=== PATIENT | female | born 1960 | race African-American/Black ===

== ENCOUNTER 2022-12-21 13:36 | Outpatient (CLI) | payer BC | END 2022-12-21 13:37 | disposition home or self-care (01) | LOC: BICMAMMO 13:36 | PROVIDERS: ATTEND Internal Medicine | DX: Z12.31 Encounter for screening mammogram for malignant neoplasm of breast (principal); M81.0 Age-related osteoporosis without current pathological fracture; M85.80 Other specified disorders of bone density and structure, unspecified site | CPT/HCPCS: 77063; 77067; 77080 ==

== ENCOUNTER 2024-05-18 09:36 | Emergency (ER) | payer BC ==
[2024-05-18 10:25] LABS: #Basophils 0.03 10x3/uL (0.0-0.2); %Basophils 0.8 % (0.0-1.0); %Eosinophils 1.1 % (0.0-10.0); %Lymphocytes 57.1 % (21.0-51.0); %Monocytes 5.4 % (0.0-10.0); %Neutrophils 35.3 % (42.0-75.0); Hematocrit 33.3 % (36.0-47.0); Hemoglobin 11.2 g/dL (12.0-16.0); Mean Corpuscular HGB CONC 33.6 g/dL (32.0-36.0); Mean Corpuscular Hemoglobin 29.6 pg (27.0-31.0); Mean Corpuscular Volume 87.9 fL (78.0-98.0); Mean Platelet Volume 10.8 fL (7.4-10.4); Platelet Count 291 10x3/uL (130-400); RBC Distribution Width 11.9 % (11.5-14.5); Red Blood Cell (RBC) Count 3.79 mill/uL (4.20-5.40)
[2024-05-18] MEDS ORDERED: Acetaminophen 500 MG TAB ONE (10:40)
[2024-05-18] MEDS ORDERED: Ketorolac Tromethamine 30 MG (1 mL) VIAL ONE (10:40)
[2024-05-18 10:49] LABS: ALT (SGPT) 10 U/L (8-55); AST (SGOT) 16 U/L (5-34); Albumin 4.3 g/dL (3.4-4.8); Alkaline Phosphatase 59 U/L (40-110); Anion Gap 14 mmol/L (10-20); BUN (Urea Nitrogen) 17 mg/dL (9.8-20.1); Bilirubin, Total 0.9 mg/dL (0.2-1.2); Calc. Creatinine Clearance 0 mL/min (70-130); Calcium 9.8 mg/dL (7.8-10.44); Carbon Dioxide 21 mmol/L (23-31); Chloride 105 mmol/L (98-107); Estimated GFR 39; Globulin 3.8 g/dL (2.4-3.5); Glucose 197 mg/dL (80-115); Protein, Total 8.1 g/dL (5.8-8.1); Sodium 136 mmol/L (136-145)
[2024-05-18 11:18] LABS: Troponin I Less than 0.010 ng/mL (< 0.028)
== END 2024-05-18 12:15 | disposition home or self-care (01) ==
LOC: ERS 09:36
DX: R55 Syncope and collapse (principal); M54.9 Dorsalgia, unspecified; I10 Essential (primary) hypertension; E11.9 Type 2 diabetes mellitus without complications; Z79.84 Long term (current) use of oral hypoglycemic drugs; Z79.899 Other long term (current) drug therapy
CPT/HCPCS: 71046; 80053; 84484; 85025; 93005; 96374; J1885

== ENCOUNTER 2024-09-03 09:17 | Outpatient (CLI) | payer BC ==
[2024-09-03 10:33] LABS: Anion Gap 10 mmol/L (10-20); BUN (Urea Nitrogen) 8 mg/dL (9.8-20.1); Calc. Creatinine Clearance 0 mL/min (70-130); Calcium 9.9 mg/dL (7.8-10.44); Carbon Dioxide 29 mmol/L (23-31); Chloride 106 mmol/L (98-107); Estimated GFR 87; Glucose 141 mg/dL (80-115); Potassium 3.4 mmol/L (3.5-5.1); Sodium 142 mmol/L (136-145)
== END 2024-09-03 09:18 | disposition home or self-care (01) ==
LOC: LABBT 09:17
PROVIDERS: ATTEND Neurological Surgery
DX: Z01.812 Encounter for preprocedural laboratory examination (principal); M51.16 Intervertebral disc disorders with radiculopathy, lumbar region
CPT/HCPCS: 80048

== ENCOUNTER 2024-09-12 06:46 | Day surgery (SDC) | payer BC ==
[2024-09-03 09:37] VITALS: BMI 22.4
[2024-09-12] MEDS ORDERED: Midazolam HCl 2 mg/2 ml Vial ONE (08:14)
[2024-09-12 08:50] LABS: #Basophils Less than 0.03 10x3/uL (0.0-0.2); %Basophils 0.5 % (0.0-1.0); %Eosinophils 1.8 % (0.0-10.0); %Lymphocytes 48.1 % (21.0-51.0); %Monocytes 6.6 % (0.0-10.0); %Neutrophils 42.7 % (42.0-75.0); Hematocrit 31.6 % (36.0-47.0); Hemoglobin 9.8 g/dL (12.0-16.0); Mean Corpuscular Hemoglobin 28.7 pg (27.0-31.0); Mean Corpuscular Volume 92.7 fL (78.0-98.0); Mean Platelet Volume 11.7 fL (7.4-10.4); Platelet Count 335 10x3/uL (130-400); RBC Distribution Width 13.1 % (11.5-14.5); Red Blood Cell (RBC) Count 3.41 mill/uL (4.20-5.40)
[2024-09-12] MEDS ORDERED: Lidocaine 2% PF 5 ML VIAL ONE (08:55)
[2024-09-12] MEDS ORDERED: EPINEPHrine 1 MG/ML VIAL ONE (08:55)
[2024-09-12] MEDS ORDERED: fentaNYL PF 100 MCG/2 ML SYRINGE ONE (08:55)
[2024-09-12] MEDS ORDERED: PROPOFOL 20 ML ONE (08:55)
[2024-09-12] MEDS ORDERED: Rocuronium Bromide 10 MG/ML (10ML VIAL) ONE (08:56)
[2024-09-12] MEDS ORDERED: Bupivacaine 0.25% HCL 30 ML VIAL ONE (08:56)
[2024-09-12] MEDS ORDERED: Promethazine HCl 25 MG/ML VIAL ONE (09:01)
[2024-09-12] MEDS ORDERED: LevoFLOXacin D5W 500 mg (100 mL) BAG ONE (09:13)
[2024-09-12] MEDS ORDERED: Clindamycin/D5W 900 mg/50 ml Premix Bag ONE (09:14)
[2024-09-12] MEDS ORDERED: Ondansetron PF 4 MG/2 ML Vial ONE (09:37)
[2024-09-12] MEDS ORDERED: Dexamethasone 20 MG/5 ML VIAL ONE (09:37)
[2024-09-12] MEDS ORDERED: Ketorolac Tromethamine 30 MG (1 mL) VIAL ONE (09:37)
[2024-09-12] MEDS ORDERED: ePHEDrine Sulfate 50 MG/10 ML VIAL ONE (10:02)
[2024-09-12] MEDS ORDERED: SUGAMMADEX SODIUM 200 MG/2 ML VIAL ONE (10:16)
[2024-09-12] MEDS ORDERED: HYDROmorphone 2 MG/ML VIAL ONE (10:17)
[2024-09-12] MEDS ORDERED: Thrombin 5000 UNITS/5 ML VIAL ONE (10:49)
[2024-09-12] MEDS ORDERED: HYDROcodone/Acetaminophen 5/325 mg Tablet ONE (12:23)
== END 2024-09-12 14:00 | disposition home or self-care (01) ==
LOC: SDC 06:46
PROVIDERS: ATTEND Neurological Surgery
PROC: 01NB0ZZ Release Lumbar Nerve, Open Approach (ICD-10-PCS; principal; 2024-09-12)
DX: M51.16 Intervertebral disc disorders with radiculopathy, lumbar region (principal); E11.9 Type 2 diabetes mellitus without complications; I10 Essential (primary) hypertension; Z90.49 Acquired absence of other specified parts of digestive tract; Z90.710 Acquired absence of both cervix and uterus; Z79.84 Long term (current) use of oral hypoglycemic drugs; Z79.899 Other long term (current) drug therapy; Z88.1 Allergy status to other antibiotic agents
CPT/HCPCS: 36416; 85025; J0171; J0665; J1100; J1885; J1956; J2250; J2405; J2550; J2704; J3490